=== PATIENT | male | born 1960 | race Caucasian/White ===

== ENCOUNTER 2016-08-19 18:18 | Emergency (ER) | payer BC ==
[~2016-08-19] VITALS: Ht 190.5 cm; Wt 115.3 kg
[~2016-08-19 18:18] MED LIST: ALBUAER19; ANDROGEL TOP; EPLE50TA PO; FLUT50SP14 NAE; INS/25 PO; METO25TA3 PO; MONT1TAB3 PO; OMEPRAZOLE PO; SYNTHROID PO; WELLBUTRIN PO
[2016-08-19 18:26] VITALS: TEMP 36.8; Ht 190.5 cm; Wt 115.3 kg
--- NOTE | 2016-08-19 18:45 | EMERGENCY ROOM VISIT NOTE ---
History Report prepared by Kayla: [facility] Under the Supervision of: Dr. Fernando Jarvis D.O. First contact with patient: 18:29 Chief Complaint: RESPIRATORY PROBLEMS Stated Complaint: FOOD STUCK IN LUNG, A LOT OF WHEEZING Nursing Triage Summary: Triage note: pt reports "on tuesday i was eating a fruit cup and inhaled a piece of the fruit and i think it is stuck in my left lung, i can feel it there." History of Present Illness The patient is a 56 year old male who presents to the Emergency Room with complaints of persistent chest discomfort that started two days ago. The patient notes he was eating a piece of fruit and he thinks he inhaled it into his lung. He notes that he tried to get the fruit out that day, but was not successful. The next day he tried deep coughing exercises since he still felt the piece of fruit in his left lung when he woke up. The patient notes that he started wheezing yesterday. He called his PCP today and they told him to present to the ED for further evaluation. He denies fevers, chills, problems with swallowing, drinking or eating, abdominal pain, nausea or vomiting. Source of History: patient Onset: two days ago Position: chest Timing: other (persistent) Associated Symptoms: + cough, No abdominal pain, No chills, No fevers, No nausea, No vomiting Note: Other associated symptoms: wheezing denies: problems with swallowing, drinking or eating Review of Systems See HPI for pertinent positives & negatives. A total of 10 systems reviewed and were otherwise negative. Past Medical & Surgical Medical Problems: (1) Anxiety (2) Asthma (3) Bicuspid aortic valve (4) Bronchitis (5) Depression (6) Enlarged aorta (7) Tenzin's disease (8) Heart disease (9) Hernia (10) Hypertension (11) Hypogonadism (12) Kidney disease (13) Pneumonia (14) Skin problem (15) Stomach problems Surgical Problems: (1) H/O nasal septoplasty (2) S/P tonsillectomy Family History FH: cancer FH: diabetes mellitus FH: gallbladder disease FH: heart disease FH: hypertension FH: lung disease FH: seizures Kidney stone Social History Smoking Status: Never Smoker Marital Status: Housing Status: lives with family Occupation Status: employed Current/Historical Medications Scheduled Bupropion HCl (Bupropion HCl Sr), 150 MG PO BID Duloxetine Hcl (Cymbalta), 30 MG PO DAILY Eplerenone (Eplerenone), 50 MG PO DAILY Esomeprazole Magnesium (Nexium), 20 MG PO DAILY Fluticasone Propionate (Nasal) (Flonase Allergy Relief), 2 SPRAYS PERRI DAILY Hydrochlorothiazide (Hctz), 25 MG PO DAILY Levocetirizine Dihydrochloride (Levocetirizine Dihydrochl), 5 MG PO DAILY Levothyroxine Sodium (Synthroid), 300 MCG PO 2XWK Levothyroxine Sodium (Synthroid), 200 MCG PO 5XWK Metoprolol Succinate (Metoprolol Succinate ER), 37.5 MG PO QAM Metoprolol Succinate (Metoprolol Succinate ER), 25 MG PO QPM Montelukast Sodium (Montelukast Sodium), 10 MG PO DAILY Testosterone (Androgel Pump), 1 APPLN TOP UD Trazodone Hcl (Trazodone), 50 MG PO HS Scheduled PRN Albuterol Sulfate (Proair Respiclick), 2 PUFFS INH UD PRN for Shortness of Breath Allergies Coded Allergies: Chocolate (Verified Allergy, Mild, HIVES, 04/12/13) Erythromycin (Verified Allergy, Mild, GI SYMPTOMS, 04/12/13) Gluten (Verified Allergy, Mild, GI SYMPTOMS, 04/12/13) Latex (Verified Allergy, Mild, RASH, 04/12/13) HIVES Uncoded Allergies: CEPHALSPORINS (Allergy, Mild, RASH, 04/12/13) ITCHY TREES (Allergy, Mild, SHORTNESS OF BREATH, 04/12/13) TREES,GRAAS,FLOWER,PLANTS EMYCIN, ? SULFA (Allergy, Unknown, 01/26/04) Physical Exam Vital Signs Date Time Temp Pulse Resp B/P Pulse Ox O2 Delivery O2 Flow Rate FiO2 08/19/16 20:51 71 18 124/81 96 08/19/16 19:46 67 08/19/16 19:44 95 Room Air 08/19/16 19:44 68 18 125/75 95 Room Air 08/19/16 19:44 95 Room Air 08/19/16 18:26 36.8 69 18 129/68 96 Room Air Physical Exam GENERAL: Patient is awake alert in no acute distress patient is resting comfortably and showing no signs of anxiety EYES: The conjunctivae are clear. The pupils are round and reactive. EARS, NOSE, MOUTH AND THROAT: The nose is without any evidence of any deformity. Mucous membranes are moist tongue is midline NECK: The neck is nontender and supple. RESPIRATORY: Scattered rhonchi noted throughout. No tachypnea, wheezing or conversational dyspnea noted. CARDIOVASCULAR: Regular rate and rhythm noted there no murmurs rubs or gallops normal S1 normal S2 GASTROINTESTINAL: The abdomen is soft. Bowel sounds are present in all quadrants. Abdomen is nontender MUSCULOSKELETAL/EXTREMITIES: There is no evidence of gross deformity full range of motion is noted in the hips and shoulders SKIN: There is no obvious evidence of any rash. There are no petechiae, pallor or cyanosis noted. NEUROLOGIC: Patient is awake alert and oriented x3 Medical Decision & Procedures ER Provider Diagnostic Interpretation: X-ray results as stated below per interpretation by me and the radiologist. CHEST 2 VIEWS ROUTINE CLINICAL HISTORY: Respiratory distress. Dyspnea. COMPARISON STUDY: No previous studies for comparison. FINDINGS: Lung volumes are normal. There is no consolidation. No pneumothorax or pleural effusions present. Cardiac size is normal. Mediastinal contours are normal. There is no evidence of pulmonary edema. IMPRESSION: No acute cardiopulmonary findings. Electronically signed by: Papito Butt M.D. 08/19/2016 7:25 PM Dictated Date/Time: 08/19/2016 7:24 PM Laboratory Results 08/19/16 18:52 Red Blood Count 5.80, Mean Corpuscular Volume 76.9, Mean Corpuscular Hemoglobin 26.0, Mean Corpuscular Hemoglobin Concent 33.9, Mean Platelet Volume 9.3, Neutrophils (%) (Auto) 55.5, Lymphocytes (%) (Auto) 29.7, Monocytes (%) (Auto) 10.6, Eosinophils (%) (Auto) 3.2, Basophils (%) (Auto) 0.6, Neutrophils # (Auto ) 2.61, Lymphocytes # (Auto) 1.40, Monocytes # (Auto) 0.50, Eosinophils # (Auto ) 0.15, Basophils # (Auto) 0.03 08/19/16 18:52 Test 08/19/16 18:52 08/19/16 19:30 White Blood Count 4.71 K/uL (4.8-10.8) Red Blood Count 5.80 M/uL (4.7-6.1) Hemoglobin 15.1 g/dL (14.0-18.0) Hematocrit 44.6 % (42-52) Mean Corpuscular Volume 76.9 fL (80-100) Mean Corpuscular Hemoglobin 26.0 pg (25-34) Mean Corpuscular Hemoglobin Concent 33.9 g/dl (32-36) Platelet Count 157 K/uL (130-400) Mean Platelet Volume 9.3 fL (7.4-10.4) Neutrophils (%) (Auto) 55.5 % Lymphocytes (%) (Auto) 29.7 % Monocytes (%) (Auto) 10.6 % Eosinophils (%) (Auto) 3.2 % Basophils (%) (Auto) 0.6 % Neutrophils # (Auto) 2.61 K/uL (1.4-6.5) Lymphocytes # (Auto) 1.40 K/uL (1.2-3.4) Monocytes # (Auto) 0.50 K/uL (0.11-0.59) Eosinophils # (Auto) 0.15 K/uL (0-0.5) Basophils # (Auto) 0.03 K/uL (0-0.2) RDW Standard Deviation 38.9 fL (36.4-46.3) RDW Coefficient of Variation 13.9 % (11.5-14.5) Immature Granulocyte % (Auto) 0.4 % Immature Granulocyte # (Auto) 0.02 K/uL (0.00-0.02) Prothrombin Time 10.7 SECONDS (9.0-12.0) Prothromb Time International Ratio 1.0 (0.9-1.1) Activated Partial Thromboplast Time 28.0 SECONDS (21.0-31.0) Partial Thromboplastin Ratio 1.1 Anion Gap 7.0 mmol/L (3-11) Est Creatinine Clear Calc Drug Dose 77.1 ml/min Estimated GFR () 60.3 Estimated GFR (Non- 52.0 BUN/Creatinine Ratio 12.5 (10-20) Calcium Level 9.0 mg/dl (8.5-10.1) Total Bilirubin 0.5 mg/dl (0.2-1) Aspartate Amino Transf (AST/SGOT) 12 U/L (15-37) Alanine Aminotransferase (ALT/SGPT) 28 U/L (12-78) Alkaline Phosphatase 59 U/L (45-117) Troponin I < 0.015 ng/ml (0-0.045) Total Protein 7.0 gm/dl (6.4-8.2) Albumin 4.1 gm/dl (3.4-5.0) Globulin 2.9 gm/dl (2.5-4.0) Albumin/Globulin Ratio 1.4 (0.9-2) Urine Color YELLOW Urine Appearance CLEAR (CLEAR) Urine pH 6.5 (4.5-7.5) Urine Specific [place] 1.007 (1.000-1.030) Urine Protein NEG (NEG) Urine Glucose (UA) NEG (NEG) Urine Ketones NEG (NEG) Urine Occult Blood NEG (NEG) Urine Nitrite NEG (NEG) Urine Bilirubin NEG (NEG) Urine Urobilinogen NEG (NEG) Urine Leukocyte Esterase NEG (NEG) Laboratory results per my review. ECG Indication: other Rate (beats per minute): 69 Rhythm: normal sinus Findings: no ectopy, other (lateral t-wave inversion, LVH by voltage criteria) Comparison ECG Date: no prior available ED Course 9: The patient was evaluated in room 8. A complete history and physical examination were performed. 1941: At this time, I reevaluated the patient and he was resting comfortably. 2019: At this time, I discussed the patient's case with Dr. Quintana - Pulmonary Medicine [facility] and agreed to see the patient in his outpatient office for a bronchoscopy. He said to advise the patient if his symptoms worsened. : Upon reevaluation, the patient is resting comfortably. I discussed the results and treatment plan with him. He verbalized agreement of the treatment plan. The patient was discharged home. Medical Decision Differential diagnosis: Etiologies such as infections, reactive airway disease, pneumonia, pneumothorax , COPD, CHF, cardiac ischemia, pulmonary embolism, musculoskeletal, gastrointestinal, as well as others were entertained. Nursing notes reviewed. The patient is a 56-year-old male who presented to the emergency department for evaluation of possible aspiration into his lungs. The patient states that 2 days ago he was eating a fruit cup when he feels that he aspirated a piece of fruit. The patient was not hypoxic or tachycardic. The patient was comfortable and resting well. I discussed the patient's laboratory and radiographic studies with him. I also discussed his case with the on-call air shovel operator. At this time I feel the patient can follow-up for outpatient pulmonary evaluation and possible bronchoscopy. The patient was evaluated by the emergency Department oil field caser and arrangements were made for him to see the air shovel operator in the morning. He was encouraged to rest and avoid any strenuous activity. He was encouraged to be nothing by mouth after midnight. He was also encouraged to return the emergency Department immediately if symptoms change worsen or the need arises. Consults Time Called: 2013 Consulting Physician: Dr. Quintana - Pulmonary Medicine [facility] Returned Call: 2018 At this time, I discussed the patient's case with Dr. Quintana and agreed to see the patient in his outpatient office for a bronchoscopy. He said to advise the patient if his symptoms worsened. Impression Primary Impression: Shortness of breath Additional Impression: Aspiration of foreign body in respiratory tract Scribe Attestation The scribe's documentation has been prepared under my direction and personally reviewed by me in its entirety. I confirm that the note above accurately reflects all work, treatment, procedures, and medical decision making performed by me. Departure Information Dispostion Home / Self-Care Referrals Brenda Nunez M.D. (PCP) Forms HOME CARE DOCUMENTATION FORM, IMPORTANT VISIT INFORMATION, WORK / SCHOOL INSTRUCTIONS Patient Instructions ED Dyspnea Shortness of Breath, [facility] Additional Instructions Follow-up with the air shovel operator tomorrow morning. Have nothing to eat or drink after midnight tonight. Continue all medications as prescribed. Return to the emergency department immediately if symptoms change worsen or the need arises. Problem Qualifiers
[2016-08-19 19:06] LABS: BASO % 0.6 %; BASO ABS # 0.03 K/uL (0-0.2); COMPLETE YES; EOS % 3.2 %; HEMATOCRIT 44.6 % (42-52); IG% 0.4 %; LYMPH % 29.7 %; MEAN CELL VOLUME 76.9 fL (80-100); MEAN CORPUSCULAR HGB CONC 33.9 g/dl (32-36); MEAN PLATELET VOLUME 9.3 fL (7.4-10.4); MONO % 10.6 %; NEUT % 55.5 %; PLATELET COUNT 157 K/uL (130-400); WHITE BLOOD COUNT 4.71 K/uL (4.8-10.8)
[2016-08-19] MEDS ORDERED: LEVO-14 PO (19:16)
[2016-08-19] MEDS ORDERED: TEST5GEL TOP (19:16)
[2016-08-19] MEDS ORDERED: WLLSR150 PO (19:16)
[2016-08-19] MEDS ORDERED: HYDR25TA4 PO (19:16)
[2016-08-19] MEDS ORDERED: MONT1TAB5 PO (19:16)
[2016-08-19] MEDS ORDERED: ALBU18002 INH (19:16)
[2016-08-19] MEDS ORDERED: TRAZ50TA35 PO (19:16)
[2016-08-19] MEDS ORDERED: ESOM20CA PO (19:16)
[2016-08-19] MEDS ORDERED: TPRSR25 PO (19:16)
[2016-08-19] MEDS ORDERED: LEVO200T PO ×2 (19:16)
[2016-08-19] MEDS ORDERED: EPLE50TA3 PO (19:16)
[2016-08-19] MEDS ORDERED: TPRSR/25 PO (19:16)
[2016-08-19] MEDS ORDERED: CYM/30 PO (19:16)
[2016-08-19] MEDS ORDERED: FLUT0.15 NAE (19:16)
[2016-08-19 19:25] LABS: ALT/SGPT 28 U/L (12-78); AST/SGOT 12 U/L (15-37); BLOOD UREA NITROGEN 19 mg/dl (7-18); BUN/CREATININE RATIO 12.5 (10-20); CARBON DIOXIDE 29 mmol/L (21-32); CHLORIDE 103 mmol/L (98-107); GLUCOSE 91 mg/dl (70-99); POTASSIUM 3.6 mmol/L (3.5-5.1); SODIUM 139 mmol/L (136-145)
--- NOTE | 2016-08-19 19:27 | DIAGNOSTIC IMAGING REPORT ---
CHEST 2 VIEWS ROUTINE CLINICAL HISTORY: Respiratory distress. Dyspnea. COMPARISON STUDY: No previous studies for comparison. FINDINGS: Lung volumes are normal. There is no consolidation. No pneumothorax or pleural effusions present. Cardiac size is normal. Mediastinal contours are normal. There is no evidence of pulmonary edema. IMPRESSION: No acute cardiopulmonary findings. Electronically signed by: Papito Butt M.D. 08/19/2016 7:25 PM Dictated Date/Time: 08/19/2016 7:24 PM
[2016-08-19 19:29] LABS: ALB/GLOB RATIO 1.4 (0.9-2); ALKALINE PHOSPHATASE 59 U/L (45-117)
[2016-08-19 19:31] LABS: PARTIAL THROMBOPLASTIN RATIO 1.1; PROTHROMBIN TIME (PATIENT) 10.7 SECONDS (9.0-12.0)
[2016-08-19 19:44] VITALS: O2SAT 95
[2016-08-19 20:02] LABS: URINE APPEARANCE CLEAR (CLEAR); URINE BILIRUBIN NEG (NEG); URINE COLOR YELLOW; URINE NITRITE NEG (NEG); URINE PH 6.5 (4.5-7.5); URINE SPECIFIC GRAVITY 1.007 (1.000-1.030); UROBILINOGEN NEG (NEG)
[2016-08-19 20:10] LABS: MANUAL MICROSCOPIC REQUIRED? NO; REVIEW REQ? NO
[2016-08-19 20:51] VITALS: BP 124/81; PULSE 71; O2SAT 96
[2016-09-23] MEDS ORDERED: ASPCH81X PO (09:03)
[2016-09-23] MEDS ORDERED: DULO-24 PO (09:03)
[2016-09-23] MEDS ORDERED: HYDR200T5 PO (09:03)
[2016-09-23] MEDS ORDERED: ATRINS NEB (09:03)
[2016-09-23] MEDS ORDERED: PHEN10TA73 PO (09:03)
== END 2016-08-19 20:52 | disposition home or self-care (01) ==
LOC: C.EDB 18:19 → C.EDC 20:52
DX: R06.02 Shortness of breath (principal); T17.908A Unspecified foreign body in respiratory tract, part unspecified causing other injury, initial encounter; X58.XXXA Exposure to other specified factors, initial encounter; F41.9 Anxiety disorder, unspecified; J45.909 Unspecified asthma, uncomplicated; Q23.1 Congenital insufficiency of aortic valve; F32.9 Major depressive disorder, single episode, unspecified; E06.3 Autoimmune thyroiditis; I10 Essential (primary) hypertension; E29.1 Testicular hypofunction; N28.9 Disorder of kidney and ureter, unspecified; Z83.3 Family history of diabetes mellitus; Z82.49 Family history of ischemic heart disease and other diseases of the circulatory system; Z84.1 Family history of disorders of kidney and ureter; Z82.0 Family history of epilepsy and other diseases of the nervous system

== ENCOUNTER → 2016-08-27 | Outpatient (CLI) | payer BC ==
[~2016-08-27] MED LIST changes: +ALBU18002 INH; -ALBUAER19; -ANDROGEL TOP; +ASPCH81X PO; +ATRINS NEB; +CYM/30 PO; +DULO-24 PO; -EPLE50TA PO; +EPLE50TA3 PO; +ESOM20CA PO; +FLUT0.15 NAE; -FLUT50SP14 NAE; +HYDR200T5 PO; +HYDR25TA4 PO; -INS/25 PO; +LEVO-14 PO; +LEVO200T PO; -METO25TA3 PO; -MONT1TAB3 PO; +MONT1TAB5 PO; -OMEPRAZOLE PO; +PHEN10TA73 PO; -SYNTHROID PO; +TEST5GEL TOP; +TPRSR/25 PO; +TPRSR25 PO; +TRAZ50TA35 PO; -WELLBUTRIN PO; +WLLSR150 PO
--- NOTE | 2016-08-27 09:50 | DIAGNOSTIC IMAGING REPORT ---
CHEST 2 VIEWS ROUTINE CLINICAL HISTORY: Aspiration. History of asthma. COMPARISON STUDY: 08/19/2016 FINDINGS: The cardiac and mediastinal contours are normal. There is no evidence of focal pulmonary consolidation. There is no evidence of failure. No pleural effusions are visualized.[ IMPRESSION: No active disease in the chest. Electronically signed by: Alfie Valdez M.D. 08/27/2016 9:48 AM Dictated Date/Time: 08/27/2016 9:48 AM
== END | disposition home or self-care (01) ==
LOC: C.RADBBURG 09:37
PROVIDERS: ATTEND Internal Medicine Critical Care Medicine
DX: T17.890A Other foreign object in other parts of respiratory tract causing asphyxiation, initial encounter (principal); X58.XXXA Exposure to other specified factors, initial encounter

== ENCOUNTER → 2016-09-23 | Day surgery (SDC) | payer BC ==
[~2016-09-23] VITALS: Ht 190.5 cm; Wt 113.5 kg
[~2016-09-23] MED LIST changes: +ACETAMINOPHEN 325 MG TAB PO PRN; +ATROPINE SULFATE 0.1 MG/ML 5ML SYR IV PRN; +DIAZEPAM 5MG TAB ONE; +SODIUM CHLORIDE 0.9% 1000ML 1,000 ML IV SCH; +SODIUM CHLORIDE 0.9% 1000ML 250 ML IV PRN
[2016-09-23 08:28] VITALS: BP 127/74; PULSE 62; TEMP 36.5; O2SAT 99; Ht 190.5 cm; Wt 113.5 kg
[2016-09-23 09:05] LABS: BASO % 0.8 %; BASO ABS # 0.03 K/uL (0-0.2); COMPLETE YES; EOS % 4.5 %; HEMATOCRIT 45.2 % (42-52); IG% 0.3 %; LYMPH ABS # 1.24 K/uL (1.2-3.4); MEAN CELL VOLUME 78.5 fL (80-100); MEAN CORPUSCULAR HEMOGLOBIN 25.9 pg (25-34); MEAN PLATELET VOLUME 9.3 fL (7.4-10.4); MONO % 6.3 %; NEUT % 57.1 %; PLATELET COUNT 157 K/uL (130-400); RED BLOOD COUNT 5.76 M/uL (4.7-6.1)
[2016-09-23 09:15] LABS: BUN/CREATININE RATIO 14.6 (10-20); CREATININE 1.4 mg/dl (0.60-1.40); POTASSIUM 4.1 mmol/L (3.5-5.1)
--- NOTE | 2016-09-23 10:05 | History & Physical Bridge Note ---
H&P Re-Evaluation Bridge Note: I have examined the patient, reviewed the History & Physical and in the interval since the performance of the History & Physical I have noted the following changes of clinical significance: No changes noted
--- NOTE | 2016-09-23 10:08 | [facility] Post Operative Brief Note ---
Preliminary Procedure Note Procedure Date September 23, 2016. Pre-Procedure Diagnosis Valvular Disease AUC Score 7 Post-Procedure Diagnosis Normal Coronary Arteries Procedure(s) Performed Coronary Angiography, Aortography Director Of Digital Marketing Dr. Chino Sutton Compliance Vice President(s) Buddy Del Rio Estimated Blood Loss <15 cc Medication(s) Lidocaine 1% (local infiltration), Diphenhydramine (25mg po), Diazepam (Valium 5mg po) Preliminary Findings Codominant coronary anatomy Short Left Main Modest caliber coronaries with minimal irregularities only Moderate aortic root enlargement Moderate aortic insufficiency Recommendations valve replacement Specimens None Anesthesia Anxiolytics only Procedural Complication(s) None Disposition Body Repairer Holding/Recovery
--- NOTE | 2016-09-23 12:26 | Discharge Instructions ---
Discharge Instructions Procedure Procedure Date: September 23, 2016. Reason for Visit: Aortic Stenosis *. Discharge Discharge Date: September 23, 2016. Discharge Diagnosis: Aortic stenosis/insufficiency Last Recorded Wt (Kilograms): 113.500 Anesthesia Post Anesthesia Instructions: If you have had General Anesthesia or IV Sedation: * Do not drive today. * Resume driving when surgeon permits. * Do not make important decisions or sign legal documents today. * Call surgeon for: 1. Temperature elevations greater than 101 degrees F. 2. Uncontrollable pain. 3. Excessive bleeding. 4. Persistent nausea and vomiting. 5. Medication intolerance (nausea, vomiting or rash). * For nausea and vomiting use only clear liquids such as: tea, soda, bouillon until nausea subsides, then gradually increase diet as tolerated. * If you have any concerns or questions, call your surgeon's office. If physician is unavailable and it is an emergency, call 911 or go to the nearest emergency room. Instructions Activity Recommendations: limitations as noted below Recommended Home Diet: resume previous diet Allergies: Coded Allergies: Chocolate (Verified Allergy, Mild, HIVES, 04/12/13) Latex (Verified Allergy, Mild, RASH, 04/12/13) HIVES Erythromycin (Verified Adverse Reaction, Mild, GI SYMPTOMS, 09/23/16) Gluten (Verified Adverse Reaction, Mild, GI SYMPTOMS, 09/23/16) Uncoded Allergies: CEPHALSPORINS (Allergy, Mild, RASH, 04/12/13) ITCHY TREES (Allergy, Mild, SHORTNESS OF BREATH, 04/12/13) TREES,GRAAS,FLOWER,PLANTS EMYCIN, ? SULFA (Allergy, Unknown, 01/26/04) NARCOTICS (Adverse Reaction, Severe, Nausea/vomiting, 09/23/16) Provider Instructions ACTIVITY RECOMMENDATIONS: It is common to feel weak and fatigue for a few days. * Do not drive or operate any motorized equipment for the next three days. * Limit stair usage (2 or 3 trips a day only) for the next three days. * Do not lift anything heavier than 10 pounds for the next three days. * Do not engage in vigorous exercise or any sports for the next five days. * You may shower the day after your procedure, but do not immerse the area for three days. Cleanse the site gently with soap and water. SPECIAL CARE INSTRUCTIONS: * You may replace the pressure dressing or band-aid the morning after the procedure. * After your procedure, it is normal to have a small bruise or small lump at the site. Examine your site daily for any change in the bruise or lump, redness, swelling, drainage or numbness. Notify your doctor if any change. BLEEDING: * If there is a small amount of bleeding at the site, lie down and apply firm pressure with a clean cloth for ten minutes. When the bleeding stops, lie quietly keeping the procedure limb straight for six hours. Notify your doctor as soon as possible. * If the bleeding does not stop after ten minutes or if there is a large amount of bleeding or spurting, call 911 immediately. Continue to lie down and hold firm pressure until help arrives. SKIN IRRITATION: * You may experience some redness and/or swelling in the area where radiation was administered. If any skin irritation occurs, please contact your family physician. FOLLOW UP VISIT: Keep any scheduled doctor appointments. Follow Up Follow-up with: Dr Kent as scheduled Tomas Arciniega Recommendations: Call your doctor if: * Temperature above 101 degrees * Pain not relieved by pain medicine ordered * There is increased drainage or redness from any incision * You have any unanswered questions or concerns. Your Doctors Instructions noted above were prepared by provider Chino Sutton. Patient Signature Section: Patient Instructions Signature Page Tyrone Holliday Patient (or Guardian) Signature/Date: I have read and understand the instructions given to me by my caregivers. Caregiver/RN/Doctor Signature/Date: The above-named patient and/or guardian has received patient instructions on this date. + Original Patient Signature Page (only) stays with chart. Please make copy for patient.
[2016-09-23 13:15] VITALS: BP 138/69; PULSE 54; O2SAT 96
--- NOTE | 2016-09-23 15:17 | CARDIAC CATH REPORT ---
DATE OF PROCEDURE: 09/23/2016. INDICATIONS: Aortic stenosis, aortic valve disease, preoperative assessment. PROCEDURE: Coronary angiography, aortic root angiography. BRIEF CARDIAC HISTORY: The patient is a 56-year-old male with a history of congenitally bicuspid aortic valve with associated aortic stenosis, aortic insufficiency, symptomatic. Is referred now in the setting of planned preoperative valve replacement assessment. He has manifested a class 2-3 exertional dyspnea and shortness of breath, no heart failure or angina. LV systolic function has been preserved. ACCESS: Right femoral artery. CATHETERS: A 5-Gibraltarian arterial sheath, 5-Gibraltarian JL5 5-Gibraltarian 3DRC, 5-Gibraltarian straight pigtail. CONTRAST: Nonionic x100 mL of Visipaque. ANESTHESIA: None. The patient received anxiolytics therapy with Valium 5 mg p.o. and Benadryl 25 mg p.o. MEDICATIONS: The patient received local anesthetic infiltration with 1% lidocaine. RADIATION EXPOSURE: Fluoroscopy time 2.9 minutes, 1333 milligrays, [place] [id number]. COMPLICATIONS: None. RESULTS: CORONARY ANGIOGRAPHY: Coronary anatomy is codominant. LEFT MAIN: Very short and bifurcates to give rise to left anterior descending and left circumflex. There is no disease in the left main. LEFT ANTERIOR DESCENDING: Left anterior descending is type 3 in distribution and gives rise to a high diagonal branch of modest caliber shortly after its origin, a large second diagonal branch at the end of its proximal third, which parallels the left anterior descending to the apex. Left anterior descending reaches well beyond the apex as a type 3 vessel. Within the left anterior descending, there are very minimal luminal irregularities. Overall caliber of left anterior descending and all coronaries is modest. LEFT CIRCUMFLEX: Left circumflex is large in distribution, modest in caliber. Gives rise to a small first marginal, a large second marginal branch and along the AV groove a large bifurcating posterolateral branch. There is no disease in the left circumflex. RIGHT CORONARY ARTERY: The right coronary artery is codominant in distribution. It gives rise to 2 right ventricular branches in its proximal mid portion. It continues to the AV groove continuing along as a long posterior descending artery reaching the apex. There is only trivial vessel along the AV groove. Within the right coronary artery as previously described coronary anatomy is relatively small. There are minimal luminal irregularities. There is no obstructive disease. AORTIC ROOT ANGIOGRAPHY: The aortic root is moderately dilated. There is mild aortic insufficiency. FINAL IMPRESSIONS: 1. Congenitally bicuspid aortic valve by history. 2. Codominant coronary anatomy. 3. Modest caliber coronary vessels with only minimal luminal irregularities and no obstruction. 4. Moderate aortic root enlargement. 5. Moderate aortic root insufficiency grade 2+. RECOMMENDATIONS: The patient should be referred for surgical aortic valve replacement.
== END | disposition home or self-care (01) ==
LOC: C.CATH 08:19
PROVIDERS: ATTEND Internal Medicine Cardiovascular Disease
DX: Q23.1 Congenital insufficiency of aortic valve (principal)

== ENCOUNTER 2018-06-05 06:43 | Observation (INO) ==
--- NOTE | 2018-06-05 07:23 | Emergency Department Note ---
History of Present Illness General Chief complaint: Rib Injury/Pain Time Seen by Provider: 06/05/18 06:57 History of Present Illness Maximum Pain Intensity: 10 This is a 58-year-old male that presents to the emergency department via private vehicle with complaints of "flank pain". The patient states that day, 2 days ago he was exiting his garage, stepped on ice and fell onto his right side. He notes extreme pain at that time and was seen here and had CT scans performed. He notes 7 consecutive rib fractures on the right side. He notes that he has been taking the oxycodone he was prescribed with minimal relief. He notes he was seen here yesterday for repeat chest x-ray as recommended by the thoracic surgeon and last evening try to sleep and then was vomiting with the pain medication. He notes that his pain is increased since then therefore prompting his arrival. No further trauma or falls to the area. He numerically rates the overall pain currently as a 10/10. No new abdominal pain or hemoptysis. Home Medications Home Medications Medication Instructions Recorded Confirmed Type albuterol sulfate [ProAir 2 puff INHALATION Q6H PRN 06/03/18 06/05/18 History RespiClick] aspirin 162 mg PO QPM 06/03/18 06/05/18 History bupropion HCl 150 mg PO BID 06/03/18 06/05/18 History duloxetine 20 mg PO DAILY 06/03/18 06/05/18 History eplerenone 50 mg PO DAILY 06/03/18 06/05/18 History esomeprazole magnesium 20 mg PO DAILY 06/03/18 06/05/18 History fluticasone [Flonase Allergy 2 spray INTRANASAL DAILY 06/03/18 06/05/18 History Relief] hydrochlorothiazide 37.5 mg PO DAILY 06/03/18 06/05/18 History hydroxychloroquine 400 mg PO HS 06/03/18 06/05/18 History levocetirizine 5 mg PO HS 06/03/18 06/05/18 History levothyroxine 200 mcg PO DAILY 06/03/18 06/05/18 History lidocaine [Lidoderm] 1 patch TOP DAILY #30 ea 06/03/18 06/05/18 Rx metoprolol succinate 25 mg PO QPM 06/03/18 06/05/18 History metoprolol succinate 50 mg PO QAM 06/03/18 06/05/18 History montelukast 10 mg PO PM 06/03/18 06/05/18 History ondansetron 4 mg PO Q4H PRN #30 tab 06/03/18 06/05/18 Rx oxycodone 5 mg PO Q4H PRN #18 tab 06/03/18 06/05/18 Rx testosterone 2 dose TOPICAL 4XWK 06/03/18 06/05/18 History testosterone 3 dose TOPICAL 3XWK 06/03/18 06/05/18 History trazodone 50 mg PO HS 06/03/18 06/05/18 History Allergies Allergy/AdvReac Type Severity Reaction Status Date / Time chocolate flavor Allergy Mild HIVES Verified 06/05/18 07:02 latex Allergy Mild RASH Verified 06/05/18 07:02 Sulfa (Sulfonamide Allergy Rash Unverified 06/05/18 07:02 Antibiotics) erythromycin base AdvReac Mild GI SYMPTOMS Verified 06/05/18 07:02 gluten AdvReac Mild GI SYMPTOMS Verified 06/05/18 07:02 furosemide [From Lasix] AdvReac Diarrhea Unverified 06/05/18 07:02 CEPHALSPORINS Allergy Mild RASH Uncoded 06/05/18 07:02 TREES Allergy Mild SHORTNESS Uncoded 06/05/18 07:02 OF BREATH NARCOTICS AdvReac Severe Nausea/vomi Uncoded 06/05/18 07:02 ting Past Med/Surg History Medical History Heart disease (Chronic) Hypertension (Chronic) Kidney disease (Chronic) Asthma (Chronic) Stomach problems (Chronic) Bicuspid aortic valve (Chronic) Tenzin's disease (Chronic) Enlarged aorta (Chronic) Depression (Chronic) Anxiety (Chronic) Surgical History Heart valve replaced Social History Current Living Situation: Spouse Other Information That Helps Us Care for You: No Feels Safe at Home: Yes Safety Concerns: Feels Safe At This Time Smoking Status: Never smoker Hx Alcohol Use: No Hx Substance Use: No Beliefs That Will Affect Care: None Preferred Language: Turkish Communication Ability: Effective Review of Systems A total of 10 systems reviewed and were otherwise negative Physical Exam Vital Signs Vital Signs - 24 hr 06/05/18 06:47 06/05/18 06:55 06/05/18 09:11 Temperature 36.8 C Temperature Source Oral Sepsis Recent Fever Within 48 Hours No Sepsis New/Unexplained Change in Mental Status No Sepsis Action Taken by Nursing No Action Required Pulse Rate 66 67 Pulse Rate [Apical] Pulse Rhythm Regular Regular Pulse Rhythm [Apical] Pulse Strength Normal Pulse Strength [Apical] Respiratory Rate 18 18 Respiratory Effort / Characteristics Non-Labored Spontaneous Non-Labored Spontaneous Respiratory Depth Normal Normal Respiratory Pattern Regular Regular Blood Pressure 145/89 H Blood Pressure [Right Arm] Blood Pressure Mean 107 Blood Pressure Mean [Right Arm] Blood Pressure Position [Right Arm] Pulse Oximetry 96 96 Oxygen Delivery Method Nasal Cannula Nasal Cannula Nasal Cannula Oxygen Flow Rate 1 1 1 06/05/18 09:30 06/05/18 10:14 06/05/18 10:45 Temperature Temperature Source Sepsis Recent Fever Within 48 Hours Sepsis New/Unexplained Change in Mental Status Sepsis Action Taken by Nursing Pulse Rate 80 Pulse Rate [Apical] 76 Pulse Rhythm Pulse Rhythm [Apical] Regular Pulse Strength Pulse Strength [Apical] Normal Respiratory Rate 18 18 Respiratory Effort / Characteristics Non-Labored Spontaneous Splinting (from pain) Respiratory Depth Normal Respiratory Pattern Regular Blood Pressure 167/99 H Blood Pressure [Right Arm] 163/99 H Blood Pressure Mean Blood Pressure Mean [Right Arm] 120 Blood Pressure Position [Right Arm] Pulse Oximetry 94 93 Oxygen Delivery Method Room Air Nasal Cannula Nasal Cannula Oxygen Flow Rate 2 1 06/05/18 10:57 Temperature 36.5 C Temperature Source Oral Sepsis Recent Fever Within 48 Hours Sepsis New/Unexplained Change in Mental Status Sepsis Action Taken by Nursing Pulse Rate Pulse Rate [Apical] Pulse Rhythm Pulse Rhythm [Apical] Pulse Strength Pulse Strength [Apical] Respiratory Rate 16 Respiratory Effort / Characteristics Respiratory Depth Normal Respiratory Pattern Blood Pressure Blood Pressure [Right Arm] 158/94 H Blood Pressure Mean Blood Pressure Mean [Right Arm] 115 Blood Pressure Position [Right Arm] Lying Pulse Oximetry 92 Oxygen Delivery Method Oxygen Flow Rate 1 VITAL SIGNS - Vital signs and nursing notes were reviewed. Stable. GENERAL - 58-year-old male appearing his stated age who is in no acute distress. Communicates well with provider and answers questions appropriately. SKIN - Without rashes. HEAD - NC/AT. EYES - PERRL with EOMI bilaterally. Sclera anicteric. EARS - No deformities of external structures noted on gross examination bilaterally. NOSE - Midline and without cyanosis. No epistaxis or purulent drainage noted. MOUTH/OROPHARYNX - Without perioral cyanosis. Buccal mucosa pink and moist and without leukoplakia. Tongue midline with equal elevation of palate bilaterally. No tonsillar hypertrophy, erythema, or exudates noted. Fair dentition noted. NECK - Neck with FROM. Supple to palpation. No lymphadenopathy noted. No nuchal rigidity. LUNGS - Chest wall symmetric without accessory muscle use, intercostals retractions, or central cyanosis. Normal vesicular breath sounds CTA B/L. No wheezes, rales, or rhonchi appreciated. CARDIAC - RRR with S1/S2. Small systolic murmur compatible with valve.No rubs, or gallops appreciated. MUSCULOSKELETAL: Patient is exquisitely tender overlying the right anterior lateral ribs. No flail chest. ABDOMEN - Abdominal contour normal without pulsations or visible masses. BS normoactive all four quadrants. No tenderness, palpable masses, hepatosplenomegaly, or ascites noted. EXTREMITIES - No clubbing or peripheral cyanosis. No pretibial edema present. +5 /5 strength noted in UE/LE bilaterally. NEUROLOGIC - Cranial nerves II through XII grossly intact. Sensory intact to light touch throughout. PSYCH - A&Ox3 and cooperates fully with examiner. Pt is very pleasant and interacts well with examiner. Course Administered Medications Hydromorphone HCl (Dilaudid) 0.5 mg IV Q4 PRN PRN Reason: Pain Stop: 06/19/18 09:30 Last Admin: 06/05/18 10:59 Dose: 0.5 mg Discontinued Medications Ceftriaxone Sodium (Rocephin) Confirm Administered Dose 1,000 mg .ROUTE .STK- MED ONE Stop: 06/05/18 09:40 Last Admin: 06/05/18 09:41 Dose: 1,000 mg Hydromorphone HCl (Dilaudid) 0.5 mg IV NOW STA Stop: 06/05/18 07:44 Last Admin: 06/05/18 07:50 Dose: 0.5 mg Ondansetron HCl (Zofran) 4 mg IV NOW STA Stop: 06/05/18 09:25 Last Admin: 06/05/18 09:40 Dose: 4 mg Medical Decision Making Laboratory Data Result diagrams: 06/05/18 07:20 06/05/18 07:20 Lab Results 06/05/18 06/05/18 Range/Units 07:20 07:20 WBC 8.99 (4.8-10.8) K/uL RBC 6.08 (4.7-6.1) M/uL Hgb 15.1 (14.0-18.0) g/dL Hct 46.4 (42-52) % MCV 76.3 L (80-100) fL MCH 24.8 L (25-34) pg MCHC 32.5 (32-36) g/dL RDW Std Deviation 40.2 (36.4-46.3) fL RDW Coeff of Bhupendra 14.5 (11.5-14.5) % Plt Count 129 L (130-400) K/uL MPV 9.7 (7.4-10.4) fL Immature Gran % (Auto) 0.2 % Neut % (Auto) 91.9 % Lymph % (Auto) 3.2 % [place] % (Auto) 3.9 % Eos % (Auto) 0.7 % Baso % (Auto) 0.1 % Immature Gran # (Auto) 0.02 (0.00-0.02) K/uL Neut # (Auto) 8.26 H (1.4-6.5) K/uL Lymph # (Auto) 0.29 L (1.2-3.4) K/uL [place] # (Auto) 0.35 (0.11-0.59) K/uL Eos # (Auto) 0.06 (0-0.5) K/uL Baso # (Auto) 0.01 (0-0.2) K/uL Sodium 136 (136-145) mmol/L Potassium 3.9 (3.5-5.1) mmol/L Chloride 100 (98-107) mmol/L Carbon Dioxide 26 (21-32) mmol/L Anion Gap 9.0 (3-11) BUN 19 H (7-18) mg/dl Creatinine 1.24 (0.6-1.4) mg/dl Est Cr Clr Drug Dosing 94.5 ml/min Est GFR ( Amer) 74.9 Est GFR (Non-Af Amer) 64.6 BUN/Creatinine Ratio 15.0 (10-20) Glucose 117 H (70-99) mg/dl Calcium 8.8 (8.5-10.1) mg/dl Total Bilirubin 0.5 (0.2-1) mg/dl AST 19 (15-37) U/L ALT 28 (12-78) U/L Alkaline Phosphatase 46 (45-117) U/L Total Protein 7.4 (6.4-8.2) gm/dl Albumin 4.0 (3.4-5.0) gm/dl Globulin 3.4 (2.5-4.0) gm/dl Albumin/Globulin Ratio 1.2 (0.9-2) Specimen Hemolysis Imaging Data Radiologist's Impression: XR ribs RT min 3V w CXR1V CLINICAL HISTORY: worsening r rib pain pain COMPARISON STUDY: 06/03/2018 FINDINGS: Nondisplaced fractures of the right fifth through eighth ribs. Nondisplaced fracture anterior right 10th rib. No evidence pneumothorax. Mildly progressive parenchymal infiltrate left base. Small left effusion. No evidence for pneumothorax. IMPRESSION: Nondisplaced fractures of right fifth through eighth ribs. Nondisplaced fracture anterior right ninth rib. Mildly progressive parenchymal infiltrate left base. No evidence for pneumothorax. The above report was generated using voice recognition software. It may contain grammatical, syntax or spelling errors. Electronically signed by: Madan Orlando M.D. 06/05/2018 8:15 AM MDM Narrative Patient was seen and evaluated as above in room B6. Review was performed of nursing notes and vital signs. After obtaining a thorough history and physical examination the above work up was performed. I thoroughly reviewed his previous visits. He fell this past Tuesday exiting his garage. He has fractured numerous right sided ribs. He was seen here and had a CT scan as well as a follow-up chest x-ray. He was doing well however his pain is increased. This is not controlled with the oral pain medication he was prescribed. He presents secondary to his pain. I believe that further evaluation and management is now warranted in the inpatient setting secondary to his intractable pain. He had oxycodone prior to arrival, fentanyl in route and Dilaudid here. He does appear to be in a great deal of pain. Concern is that he could also be developing a small pneumonia. X-ray as above. Case discussed with the attending physician as well as the hospitalist. Please refer to further documentation regarding his stay. I attest that I have personally reviewed the patient medication list. I attest that I have reviewed the patient's blood pressure and it was found to be elevated likely secondary to situation. IIn the evaluation and treatment of this patient, the following differential diagnoses were considered: Rib Fracture, Rib Contusion, Hemothorax, Pneumothorax , Pneumonia, Pleural Effusion. Impression & Plan Intractable pain, Fracture, ribs Discharge Plan Visit Data *Final* Discharge Date/Time: 06/05/18 10:14 Chief Complaint: Rib Injury/Pain ED Provider: Michelle Carballo ED Midlevel Provider: Omar Espinoza Discharge Problem: Intractable pain, Fracture, ribs Patient Disposition: Admitted As Inpatient Condition: Good Discharge Instructions Interventions: ED Discharge Assessment Last Done: 06/05/18 10:14
[2018-06-05 07:33] LABS: Basophils # (auto) 0.01 K/uL (0-0.2); Basophils % (auto) 0.1 %; Eosinophils # (auto) 0.06 K/uL (0-0.5); Eosinophils % (auto) 0.7 %; Hematocrit (blood only) 46.4 % (42-52); Hemoglobin 15.1 g/dL (14.0-18.0); Immature Granulocytes # (auto) 0.02 K/uL (0.00-0.02); Immature Granulocytes % (auto) 0.2 %; Lymphocytes # (auto) 0.29 K/uL (1.2-3.4); Lymphocytes % (auto) 3.2 %; Mean Corpuscular Hgb Conc 32.5 g/dL (32-36); Mean Corpuscular Volume 76.3 fL (80-100); Mean Platelet Volume 9.7 fL (7.4-10.4); Monocytes # (auto) 0.35 K/uL (0.11-0.59); Monocytes % (auto) 3.9 %; Neutrophils # (auto) 8.26 K/uL (1.4-6.5); Neutrophils % (auto) 91.9 %; Platelet Count 129 K/uL (130-400); RDW Coefficient of Variation 14.5 % (11.5-14.5); RDW Standard Deviation 40.2 fL (36.4-46.3); Red Blood Count 6.08 M/uL (4.7-6.1); White Blood Count 8.99 K/uL (4.8-10.8)
[2018-06-05] MEDS ORDERED: HYDROmorphone INJ 0.5 MG/0.5 ML SYR IV STA (07:43)
[2018-06-05 07:50] LABS: Calcium 8.8 mg/dl (8.5-10.1); Creatinine Clr Calc Pharmacy 94.5 ml/min; Est GFR (African American) 74.9; Est GFR (Non-African American) 64.6; Potassium 3.9 mmol/L (3.5-5.1)
[2018-06-05 07:54] LABS: Albumin Globulin Ratio 1.2 (0.9-2); Bilirubin,Total 0.5 mg/dl (0.2-1); Globulin 3.4 gm/dl (2.5-4.0); Total Protein 7.4 gm/dl (6.4-8.2)
--- NOTE | 2018-06-05 08:17 | XRay Report ---
XR ribs RT min 3V w CXR1V CLINICAL HISTORY: worsening r rib pain pain COMPARISON STUDY: 06/03/2018 FINDINGS: Nondisplaced fractures of the right fifth through eighth ribs. Nondisplaced fracture anteri or right 10th rib. No evidence pneumothorax. Mildly progressive parenchymal infiltrate left base. Sma ll left effusion. No evidence for pneumothorax. IMPRESSION: Nondisplaced fractures of right fifth through eighth ribs. Nondisplaced fracture anterio r right ninth rib. Mildly progressive parenchymal infiltrate left base. No evidence for pneumothorax. The above report was generated using voice recognition software. It may contain grammatical, syntax or spelling errors. Electronically signed by: Madan Orlando M.D. 06/05/2018 8:15 AM
[2018-06-05] MEDS ORDERED: ONDANSETRON INJ 2 MG/ML 2 ML VIAL IV STA (09:24)
--- NOTE | 2018-06-05 09:30 | History & Physical Report ---
Date of Service June 05, 2018 Assessment & Plan (1) Multiple rib fractures involving four or more ribs: s/p mechanical fall slipped on ice on driveway landed on rt side Cxray shows multiple rt sided rib fracture admitted for intractable pain pt is having severe N/V with narcotics ( intolerant of morphine and Dilaudid ) ordered for IV toradol lidoderm Patch incentive spirometry (2) Fall due to ice or snow: slipped on ice -on Driveway no complain of dizzy spell , lightheadedness , chest pain or SOB before or after the fall (3) Heart valve replaced: s/p procine Aortic valve replacement no complain of SOB , [place]MAN CODE STATUS : FULL CODE DVT PROPHYLAXIS : SCD AND TEDS AMBULATE DISPOSITION: expected to be discharged home when medically stable History of Present Illness Chief Complaint: fall /rt sided rib fracture /intractable pain Primary Care Provider: Brenda Nunez MD Mr. Holliday is a 58-year-old white male who was admitted due to intractable right -sided chest wall pain. T he patient suffered a fall on the ice 3 days ago with injury to the right ribs with discovery of multiple nondisplaced rib fractures involving 6 separate ribs. was seen in ER 2 days back , discharged home with pain medication pt was worse this AM with severe spasm in rt side no fever or chills no cough Xray shows : non displaced multiple ribs on right will be admitted to medical for pain control Allergies Allergy/AdvReac Type Severity Reaction Status Date / Time chocolate flavor Allergy Mild HIVES Verified 06/05/18 07:02 latex Allergy Mild RASH Verified 06/05/18 07:02 Sulfa (Sulfonamide Allergy Rash Unverified 06/05/18 07:02 Antibiotics) erythromycin base AdvReac Mild GI SYMPTOMS Verified 06/05/18 07:02 gluten AdvReac Mild GI SYMPTOMS Verified 06/05/18 07:02 furosemide [From Lasix] AdvReac Diarrhea Unverified 06/05/18 07:02 CEPHALSPORINS Allergy Mild RASH Uncoded 06/05/18 07:02 TREES Allergy Mild SHORTNESS Uncoded 06/05/18 07:02 OF BREATH NARCOTICS AdvReac Severe Nausea/vomi Uncoded 06/05/18 07:02 ting Home Medications Home Medications Medication Instructions Recorded Confirmed Type albuterol sulfate [ProAir 2 puff INHALATION Q6H PRN 06/03/18 06/05/18 History RespiClick] aspirin 162 mg PO QPM 06/03/18 06/05/18 History bupropion HCl 150 mg PO BID 06/03/18 06/05/18 History duloxetine 20 mg PO DAILY 06/03/18 06/05/18 History eplerenone 50 mg PO DAILY 06/03/18 06/05/18 History esomeprazole magnesium 20 mg PO DAILY 06/03/18 06/05/18 History fluticasone [Flonase Allergy 2 spray INTRANASAL DAILY 06/03/18 06/05/18 History Relief] hydrochlorothiazide 37.5 mg PO DAILY 06/03/18 06/05/18 History hydroxychloroquine 400 mg PO HS 06/03/18 06/05/18 History levocetirizine 5 mg PO HS 06/03/18 06/05/18 History levothyroxine 200 mcg PO DAILY 06/03/18 06/05/18 History lidocaine [Lidoderm] 1 patch TOP DAILY #30 ea 06/03/18 06/05/18 Rx metoprolol succinate 25 mg PO QPM 06/03/18 06/05/18 History metoprolol succinate 50 mg PO QAM 06/03/18 06/05/18 History montelukast 10 mg PO PM 06/03/18 06/05/18 History ondansetron 4 mg PO Q4H PRN #30 tab 06/03/18 06/05/18 Rx oxycodone 5 mg PO Q4H PRN #18 tab 06/03/18 06/05/18 Rx testosterone 2 dose TOPICAL 4XWK 06/03/18 06/05/18 History testosterone 3 dose TOPICAL 3XWK 06/03/18 06/05/18 History trazodone 50 mg PO HS 06/03/18 06/05/18 History Past Med/Surg History Medical History Heart disease (Chronic) Hypertension (Chronic) Kidney disease (Chronic) Asthma (Chronic) Stomach problems (Chronic) Bicuspid aortic valve (Chronic) Tenzin's disease (Chronic) Enlarged aorta (Chronic) Depression (Chronic) Anxiety (Chronic) Surgical History Heart valve replaced (Resolved) Social History Current Living Situation: Spouse Other Information That Helps Us Care for You: No Feels Safe at Home: Yes Safety Concerns: Feels Safe At This Time Smoking Status: Never smoker Hx Alcohol Use: No Hx Substance Use: No Beliefs That Will Affect Care: None Preferred Language: Gabonese Communication Ability: Effective Review of Systems All systems reviewed & are unremarkable except as noted in HPI & below Constitutional: as per Subjective / HPI and + body aches; no fever and no chills on right chest wall Eyes: as per Subjective / HPI; no dry eyes, no decreased night vision, no eye pain and no loss of peripheral vision Ear, Nose, Mouth, Throat: as per Subjective / HPI; no dizziness Respiratory: as per Subjective / HPI and + pain on inspiration; no cough, no change in sputum and no dyspnea on right ; due to multiple rib fracture Cardiovascular: as per Subjective / HPI; no palpitations, no syncope and no edema Gastrointestinal: as per Subjective / HPI; no abdominal pain Neurologic: as per Subjective / HPI and + falls (secondary to slipping on ice and losing balance ); no gait abnormality, no unsteadiness, no localized weakness, no paralysis, no loss of sensation, no numbness, no paresthesia, no tremor(s), no seizure-like activity, no dizziness, no syncope, no abnormal speech, no confusion and no memory loss Physical Exam 2 Vital Signs (Past 24 Hours): Last Vital Signs Temp 36.8 C 06/05/18 06:47 Pulse 67 06/05/18 06:55 Resp 18 06/05/18 06:55 BP 145/89 H 06/05/18 06:47 Pulse Ox 96 06/05/18 06:55 Physical Exam: GENERAL: In moderate distress due to rt sided chest pain HEENT: Sclera nonicteric, pink-purple bilateral equal reactive to light extraocular muscle intact Normal oral mucosa, neck: No JVD, no thyromegaly, trachea midline Lungs: poor respiratory effort due to rt sided chest wall pain , no wheeze or rales Cardiovascular: Regular S1 and S2, no murmur or gallop, no JVD, no lower extremity edema Abdomen: Soft, nontender, bowel sounds active, Extremities: no evidence of ecchymosis on rt chest wall /+ tenderness Neuro: No focal neurological deficit, no dysarthria, no facial droop Psych: Alert awake oriented x3: Euthymic Skin: No rash LYMPH NODES: No cervical lymphadenopathy _ (1) Fall due to ice or snow Encounter type: initial encounter Qualified Code(s): W00.9XXA - Unspecified fall due to ice and snow, initial encounter
[2018-06-05] MEDS ORDERED: PROMETHAZINE HCL 12.5 MG in SODIUM CHLORIDE 0.9% 50 ML IV PRN (09:31)
[2018-06-05] MEDS ORDERED: GUAIFENESIN/DEXTROM SYRUP 100MG/10MG 5ML UDC PO PRN (09:32)
[2018-06-05] MEDS ORDERED: cefTRIAXone SODIUM 1000MG/50ML D5W ONE (09:39)
[2018-06-05] MEDS ORDERED: TESTOSTERONE TOP SCH (10:52)
[2018-06-05] MEDS ORDERED: ALBUTEROL HFA INHALER 8.5 GM INH PRN (10:52)
[2018-06-05] MEDS ORDERED: LIDOCAINE 5% 1 PATCH TD SCH (10:52)
[2018-06-05] MEDS ORDERED: ONDANSETRON 4 MG OD TAB PO PRN (10:52)
[2018-06-05] MEDS ORDERED: POLYETHYLENE (MIRALAX) 17 GM PACK PO PRN (10:52)
[2018-06-05] MEDS ORDERED: MAGNESIUM HYDROXIDE SUSP 30 ML UDC PO PRN (10:52)
[2018-06-05] MEDS ORDERED: ACETAMINOPHEN 325 MG TAB PO PRN (10:52)
[2018-06-05] MEDS ORDERED: ONDANSETRON INJ 2 MG/ML 2 ML VIAL IV PRN (10:52)
[2018-06-05] MEDS ORDERED: OXYCODONE HCL IR 5 MG TAB (IMMEDIATE RELEASE) PO PRN (10:52)
[2018-06-05] MEDS ORDERED: ALUMINUM/MAGNESIUM SUSP 30 ML UDC PO PRN (10:52)
[2018-06-05] MEDS ORDERED: hydroCHLOROthiazide 25 MG TAB PO SCH (10:52)
[2018-06-05] MEDS: HYDROmorphone INJ 0.5 MG/0.5 ML SYR IV PRN ×2 (10:59→15:09)
[2018-06-05] MEDS: LIDOCAINE 5% 1 PATCH TD SCH (11:26)
[2018-06-05] MEDS: KETOROLAC TROMETHAMINE 15 MG/ML VIAL IV PRN ×2 (12:18→20:27)
[2018-06-05] MEDS: FLUTICASONE PROPIONATE NA SPR 16 GM BTL NAE SCH (13:07)
[2018-06-05] MEDS: LEVOTHYROXINE SODIUM 200 MCG TABLET PO SCH (13:08)
[2018-06-05] MEDS: METOPROLOL SUCC 50MG EXT REL TAB PO SCH (13:08)
[2018-06-05] MEDS: DULOXETINE HCL 20 MG CAP PO SCH (13:08)
[2018-06-05] MEDS: BuPROPion SR 150 MG TABCR PO SCH ×2 (13:08→17:47)
[2018-06-05] MEDS: PANTOprazole 40 MG TAB PO SCH (13:09)
[2018-06-05] MEDS: CYCLOBENZAPRINE HCL 10 MG TAB PO SCH ×2 (14:28→20:41)
[2018-06-05] MEDS: SODIUM CHLORIDE 0.9% 1000ML 1,000 ML IV SCH (15:56)
[2018-06-05] MEDS ORDERED: LEVOCETIRIZINE 5 MG SCH (16:00)
[2018-06-05] MEDS ORDERED: EPLERENONE: ORDER AWAITING ACTION SCH (16:00)
[2018-06-05] MEDS: TESTOSTERONE: ORDER AWAITING ACTION SCH (17:47)
[2018-06-05] MEDS: HYDROXYCHLOROQUINE SULFATE 200 MG TAB PO SCH (20:41)
[2018-06-05] MEDS: TRAZODONE HCL 50 MG TAB PO SCH (20:41)
[2018-06-05] MEDS: MONTELUKAST SODIUM 10 MG TABLET PO SCH (20:41)
[2018-06-05] MEDS: METOPROLOL SUCC 25MG EXT REL TAB PO SCH (20:41)
[2018-06-05] MEDS: LEVOCETIRIZINE 5 MG PO SCH (20:42)
[2018-06-05] MEDS: ASPIRIN 81 MG CHEW PO SCH (20:42)
[2018-06-06] MEDS: TESTOSTERONE: ORDER AWAITING ACTION SCH ×4 (00:41→23:36)
[2018-06-06] MEDS: KETOROLAC TROMETHAMINE 15 MG/ML VIAL IV PRN ×2 (03:02→15:08)
[2018-06-06] MEDS: SODIUM CHLORIDE 0.9% 1000ML 1,000 ML IV SCH ×2 (03:03→13:47)
[2018-06-06] MEDS: LEVOTHYROXINE SODIUM 200 MCG TABLET PO SCH (05:45)
--- NOTE | 2018-06-06 08:14 | XRay Report ---
XR chest 2V routine CLINICAL HISTORY: multiple rt sided rib fracture /pneumonia trauma COMPARISON STUDY: 05/28/2017 FINDINGS: Right rib fractures are again noted. Right lung is clear. No evidence pneumothorax. Mild left basilar atelectatic/infiltrative change. Mild stable cardiomegaly. IMPRESSION: 1. Mild improvement in infiltrative change/atelectatic change left base. 2. Unchanged right rib fractures. 3. Study is negative for pneumothorax. The above report was generated using voice recognition software. It may contain grammatical, syntax or spelling errors. Electronically signed by: Madan Orlando M.D. 06/06/2018 8:13 AM
[2018-06-06] MEDS: BuPROPion SR 150 MG TABCR PO SCH ×2 (08:47→17:21)
[2018-06-06] MEDS: FLUTICASONE PROPIONATE NA SPR 16 GM BTL NAE SCH (08:47)
[2018-06-06] MEDS: CYCLOBENZAPRINE HCL 10 MG TAB PO SCH ×3 (08:47→20:22)
[2018-06-06] MEDS: METOPROLOL SUCC 50MG EXT REL TAB PO SCH (08:47)
[2018-06-06] MEDS: PANTOprazole 40 MG TAB PO SCH (08:47)
[2018-06-06] MEDS: DULOXETINE HCL 20 MG CAP PO SCH (08:47)
[2018-06-06] MEDS: EPLERENONE 50 MG PO SCH (08:48)
[2018-06-06] MEDS: LIDOCAINE 5% 1 PATCH TD SCH (08:48)
--- NOTE | 2018-06-06 09:06 | Pain Management Consultation ---
Date of Consultation June 06, 2018 Assessment & Plan (1) Intractable pain: Present on Admission?: Yes (2) Fracture, ribs: Encounter type: Fracture healing: Fracture type: Laterality : Rib fracture type: Present on Admission?: Yes (3) Multiple rib fractures involving four or more ribs: 1. Patient with right posterior lateral anterior chest wall pain with a fall history and findings of 6 nondisplaced rib fractures. Patient is not a candidate for interventional treatment due to the number of ribs involved. Patient has a history of opioid intolerance due to nausea and vomiting. Recommend continuing with Toradol as needed without change 2. Will discontinue oxycodone due to history of intolerability 3. Will discontinue Lidoderm patch due to lack of perceived efficacy 4. Recommend a trial of Nucynta 50 mg 1 tablet p.o. every 4 hours for breakthrough pain to assess efficacy and tolerability for discharge planning purposes 5. Will adjust MiraLAX to daily use due to complaints of constipation and abdominal fullness Present on Admission?: Yes History of Present Illness Reason for Consultation: Intractable chest wall pain secondary to history of multiple rib fractures Attending Physician: Sirena Vo MD History of Present Illness Mr. Holliday is a 58-year-old white male who was admitted due to intractable right -sided chest wall pain. The patient suffered a fall on the ice 3 days ago with injury to the right ribs with discovery of multiple nondisplaced rib fractures involving 6 separate ribs. The patient was also reporting some right-sided elbow and shoulder pain which he feels is improved. He does feel that his right -sided chest wall pain is slightly improved compared to yesterday. He does find Toradol to be effective at diminishing the severity of his pain. His pain remains exacerbated with movement, deep breathing, coughing or sneezing activities. The pain is in the posterior lateral and anterior chest wall on the right side only without radiation. He is unable to tolerate opiate therapy due to nausea. He reported multiple episodes of emesis yesterday after utilization of oxycodone. Pain is currently a 5-6/10 ranging between a 4-9/10. Patient reports some mild abdominal fullness. He has not expressed a bowel movement in the past 4-5 days. He is passing some gas. Patient denies benefit from utilization of Lidoderm patch. He denies difficulties with shortness of breath or hemoptysis. Patient has a prior history of aortic valve repair due to bicuspid aortic valve. He reports some residual discomfort in the anterior chest wall since the time of the surgical procedure approximately 2 years ago. Patient is a non-smoker. He denies any further constitutional complaints at this time. Pain Assessment Full Body Front + Back: 2 1. Lateral and anterior chest wall 2. Posterior and lateral chest wall Pain scale - at its best (0-10): 4 Pain scale - at its worst (0-10): 9 Allergies Allergy/AdvReac Type Severity Reaction Status Date / Time chocolate flavor Allergy Mild HIVES Verified 06/05/18 07:02 latex Allergy Mild RASH Verified 06/05/18 07:02 Sulfa (Sulfonamide Allergy Rash Unverified 06/05/18 07:02 Antibiotics) erythromycin base AdvReac Mild GI SYMPTOMS Verified 06/05/18 07:02 gluten AdvReac Mild GI SYMPTOMS Verified 06/05/18 07:02 furosemide [From Lasix] AdvReac Diarrhea Unverified 06/05/18 07:02 CEPHALSPORINS Allergy Mild RASH Uncoded 06/05/18 07:02 TREES Allergy Mild SHORTNESS Uncoded 06/05/18 07:02 OF BREATH NARCOTICS AdvReac Severe Nausea/vomi Uncoded 06/05/18 07:02 ting Home Medications Home Medications Medication Instructions Recorded Confirmed Type albuterol sulfate [ProAir 2 puff INHALATION Q6H PRN 06/03/18 06/05/18 History RespiClick] aspirin 162 mg PO QPM 06/03/18 06/05/18 History bupropion HCl 150 mg PO BID 06/03/18 06/05/18 History duloxetine 20 mg PO DAILY 06/03/18 06/05/18 History eplerenone 50 mg PO DAILY 06/03/18 06/05/18 History esomeprazole magnesium 20 mg PO DAILY 06/03/18 06/05/18 History fluticasone [Flonase Allergy 2 spray INTRANASAL DAILY 06/03/18 06/05/18 History Relief] hydrochlorothiazide 37.5 mg PO DAILY 06/03/18 06/05/18 History hydroxychloroquine 400 mg PO HS 06/03/18 06/05/18 History levocetirizine 5 mg PO HS 06/03/18 06/05/18 History levothyroxine 200 mcg PO DAILY 06/03/18 06/05/18 History lidocaine [Lidoderm] 1 patch TOP DAILY #30 ea 06/03/18 06/05/18 Rx metoprolol succinate 25 mg PO QPM 06/03/18 06/05/18 History metoprolol succinate 50 mg PO QAM 06/03/18 06/05/18 History montelukast 10 mg PO PM 06/03/18 06/05/18 History ondansetron 4 mg PO Q4H PRN #30 tab 06/03/18 06/05/18 Rx oxycodone 5 mg PO Q4H PRN #18 tab 06/03/18 06/05/18 Rx testosterone 2 dose TOPICAL 4XWK 06/03/18 06/05/18 History testosterone 3 dose TOPICAL 3XWK 06/03/18 06/05/18 History trazodone 50 mg PO HS 06/03/18 06/05/18 History Patient History Medical History Heart disease (Chronic) Hypertension (Chronic) Kidney disease (Chronic) Asthma (Chronic) Stomach problems (Chronic) Bicuspid aortic valve (Chronic) Tenzin's disease (Chronic) Enlarged aorta (Chronic) Depression (Chronic) Anxiety (Chronic) Surgical History Heart valve replaced (Resolved) Social History Current Living Situation: Spouse Other Information That Helps Us Care for You: No Feels Safe at Home: Yes Safety Concerns: Feels Safe At This Time Smoking Status: Never smoker Hx Alcohol Use: No Hx Substance Use: No Beliefs That Will Affect Care: None Preferred Language: Telugu Communication Ability: Effective Review of Systems Constitutional: Negative for fever, chills, sweats Eyes: Negative for eye pain, photophobia, drainage Ear, nose, mouth, throat: Negative for ear pain, nasal congestion, mouth lesions , change in voice Respiratory: Negative for wheezing, sputum production Cardiovascular: Negative for chest pain, palpitations, calf pain Gastrointestinal: Negative for abdominal pain, belching, bloating Genitourinary: Negative for dysuria, urinary incontinence, urinary urgency Musculoskeletal: Negative for deformities Integumentary: Negative for nail changes, skin yellowing, pruritus Neurological: Negative for abnormal speech, seizure type activity Physical Exam 2 Vital Signs (Past 24 Hours): Last Vital Signs Temp 37.2 C 06/06/18 07:54 Pulse 67 06/06/18 07:54 Resp 18 06/06/18 07:54 BP 155/84 H 06/06/18 07:54 Pulse Ox 94 06/06/18 07:54 Physical Exam: General: Patient was sitting in wheelchair being transported from x-ray upon arrival. He was able to stand and transfer to the chair with moderate discomfort. Speech and thought process appropriate. Mood and affect appropriate. Cognition intact. Head: Normocephalic atraumatic. ENT: No evidence of nasal or oral mucosal lesion. Neck: Supple without adenopathy. Full range of motion without limitation. Nontender over the midline, paravertebral or trapezius musculature. Upper extremities: Patient is nontender over the deltoid, posterior rotator cuff insertions and bicipital tendon region to direct palpation bilaterally. Patient has full range of motion of the shoulder and elbow with guarding. He is nontender to palpation over the right elbow region. Chest wall: Patient is exquisitely tender over the right posterior lateral and anterior chest wall to palpation. He is tender with AP as well as lateral compression of the chest wall on the right side. Patient has a well-healed anterior incision over the sternal region status post aortic valve repair. Abdomen: Protuberant. Soft and nondistended. No rebound or guarding. No organomegaly. Bowel sounds are active. Lower extremities: SLR negative. Strength testing 5/5 and equal. Sensation intact without deficits. Neurologic: Cranial nerves grossly intact. The patient was witnessed transferring from wheel chair to chair.
[2018-06-06] MEDS ORDERED: POLYETHYLENE (MIRALAX) 17 GM PACK ONE (09:10)
[2018-06-06] MEDS: TAPENTADOL HCL 50 MG TAB PO PRN ×2 (09:26→22:58)
[2018-06-06] MEDS: POLYETHYLENE (MIRALAX) 17 GM PACK PO SCH (09:26)
[2018-06-06] MEDS: cefTRIAXone SODIUM 1,000 MG/50 ML BAG IV SCH (10:49)
--- NOTE | 2018-06-06 18:43 | Hospitalist Progress Note ---
Date of Service June 06, 2018 Assessment & Plan (1) Multiple rib fractures involving four or more ribs: s/p mechanical fall slipped on ice on driveway landed on rt side Cxray shows multiple rt sided rib fracture admitted for intractable pain pt is having severe N/V with narcotics ( intolerant of morphine and Dilaudid ) causing worsening of pain IV dilaudid D/oumar ordered for IV toradol incentive spirometry appreciate input from pain management ordered [place] (2) Fall due to ice or snow: slipped on ice -on Driveway no complain of dizzy spell , lightheadedness , chest pain or SOB before or after the fall (3) Heart valve replaced: s/p procine Aortic valve replacement no complain of SOB , GOODMAN CODE STATUS : FULL CODE DVT PROPHYLAXIS : SCD AND TEDS AMBULATE DISPOSITION: expected to be discharged home in next 24-48 hrs when pain well controlled Subjective pain better controlled with Toradol PRN IV narcotic ( dilaudid ) D/oumar due to N/V appreciate pain management consult started on Nucynta no complain of fever or chills no cough has been able to be OOB to chair Physical Exam 2 Vital Signs (Past 24 Hours): Last Vital Signs Temp 37.1 C 06/06/18 15:14 Pulse 72 06/06/18 15:14 Resp 16 06/06/18 15:14 BP 156/88 H 06/06/18 15:14 Pulse Ox 91 06/06/18 15:14 Physical Exam: GENERAL: No sign of distress, HEENT: Sclera nonicteric, Lungs: poor respiratory effort due to rt sided rib cage pain no wheeze or rales Cardiovascular: Regular S1 and S2, no murmur or gallop, no JVD, no lower extremity edema Abdomen: Soft, nontender, bowel sounds active, Extremities: tenderness on rt lateral chest wall with readiation to back no eccymosis Neuro: No focal neurological deficit, no dysarthria, no facial droop Psych: Alert awake oriented x3: Euthymic Skin: No rash LYMPH NODES: No cervical lymphadenopathy _ (1) Fall due to ice or snow Encounter type: initial encounter Qualified Code(s): W00.9XXA - Unspecified fall due to ice and snow, initial encounter
[2018-06-06] MEDS: TRAZODONE HCL 50 MG TAB PO SCH (20:21)
[2018-06-06] MEDS: ASPIRIN 81 MG CHEW PO SCH (20:21)
[2018-06-06] MEDS: LEVOCETIRIZINE 5 MG PO SCH (20:22)
[2018-06-06] MEDS: HYDROXYCHLOROQUINE SULFATE 200 MG TAB PO SCH (20:23)
[2018-06-06] MEDS: MONTELUKAST SODIUM 10 MG TABLET PO SCH (20:23)
[2018-06-06] MEDS: METOPROLOL SUCC 25MG EXT REL TAB PO SCH (20:24)
[2018-06-07] MEDS: LEVOTHYROXINE SODIUM 200 MCG TABLET PO SCH (05:22)
[2018-06-07] MEDS: TAPENTADOL HCL 50 MG TAB PO PRN ×3 (05:22→21:39)
[2018-06-07] MEDS: TESTOSTERONE: ORDER AWAITING ACTION SCH ×2 (08:37→16:06)
[2018-06-07] MEDS: BuPROPion SR 150 MG TABCR PO SCH ×2 (08:39→16:07)
[2018-06-07] MEDS: CYCLOBENZAPRINE HCL 10 MG TAB PO SCH ×3 (08:39→21:32)
[2018-06-07] MEDS: PANTOprazole 40 MG TAB PO SCH (08:40)
[2018-06-07] MEDS: EPLERENONE 50 MG PO SCH (08:40)
[2018-06-07] MEDS: DULOXETINE HCL 20 MG CAP PO SCH (08:40)
[2018-06-07] MEDS: METOPROLOL SUCC 50MG EXT REL TAB PO SCH (08:40)
[2018-06-07] MEDS: POLYETHYLENE (MIRALAX) 17 GM PACK PO SCH (08:40)
[2018-06-07] MEDS: FLUTICASONE PROPIONATE NA SPR 16 GM BTL NAE SCH (08:41)
[2018-06-07] MEDS: cefTRIAXone SODIUM 1,000 MG/50 ML BAG IV SCH (10:21)
--- NOTE | 2018-06-07 10:44 | Pain Management Progress Note ---
Date of Service June 07, 2018 Assessment & Plan (1) Intractable pain: Continue Nucynta. Patient's pain is better controlled. We will sign off on the patient. Please call for any questions or concerns. (2) Multiple rib fractures involving four or more ribs: Subjective Mr. Holliday is a 58 year old white male with #6 rib fractures on the right. Patient states that the pain better controlled since the Oxycodone was discontinued and he was placed on Nucynta. He states that the Nucynta is more effective towards diminishing his pain and is not causing headaches. He is able to move around better since starting the Nucynta. No SOB, cough, constitutional complaints. Physical Exam 2 Vital Signs (Past 24 Hours): Last Vital Signs Temp 37.5 C 06/07/18 07:45 Pulse 69 06/07/18 07:45 Resp 18 06/07/18 07:45 BP 133/70 06/07/18 07:45 Pulse Ox 91 06/07/18 07:45 Physical Exam: GENERAL: Speech and cognition is intact. Mood and affect is appropriate. In no acute distress. NEURO: CN II-XII grossly intact with no focal deficits noted.
[2018-06-07] MEDS ORDERED: BISACODYL 5 MG TABEC PO ONE (16:52)
--- NOTE | 2018-06-07 17:27 | Hospitalist Progress Note ---
Date of Service June 07, 2018 Assessment & Plan (1) Multiple rib fractures involving four or more ribs: (2) Fall due to ice or snow: s/p mechanical fall slipped on ice on driveway landed on rt side Cxr showed multiple right sided rib fracture Pain management on board Pain control with tapentadol incentive spirometry Pain improves (3) Heart valve replaced: s/p procine Aortic valve replacement no complain of SOB , GOODMAN CODE STATUS : FULL CODE DVT PROPHYLAXIS : SCD AND TEDS AMBULATE DISPOSITION: Discharge home tomorrow Subjective Pt was seen and examined Sitting in chair with no distress Pt said that pain seems to improve with the nucynta Denies any chest pain, palpitation dizziness and SOB Physical Exam 2 Vital Signs (Past 24 Hours): Last Vital Signs Temp 37.0 C 06/07/18 15:28 Pulse 68 06/07/18 15:28 Resp 18 06/07/18 15:28 BP 147/85 H 06/07/18 15:28 Pulse Ox 92 06/07/18 15:28 Physical Exam: General- No acute distress Head- atraumatic Eyes- PERRL, EOMI, ENT- oropharynx clear Neck- supple, no JVD Lungs- clear to auscultation Heart- regular rhythm; +murmur Abdomen- normal bowel sounds, soft, nontender Extremities- no calf tenderness Neuro- alert, oriented x 3; PERRL, EOMI; no facial palsy; no dysarthria Skin- warm & dry _ (1) Fall due to ice or snow Encounter type: initial encounter Qualified Code(s): W00.9XXA - Unspecified fall due to ice and snow, initial encounter
[2018-06-07] MEDS: ASPIRIN 81 MG CHEW PO SCH (21:31)
[2018-06-07] MEDS: TRAZODONE HCL 50 MG TAB PO SCH (21:32)
[2018-06-07] MEDS: LEVOCETIRIZINE 5 MG PO SCH (21:33)
[2018-06-07] MEDS: HYDROXYCHLOROQUINE SULFATE 200 MG TAB PO SCH (21:34)
[2018-06-07] MEDS: MONTELUKAST SODIUM 10 MG TABLET PO SCH (21:34)
[2018-06-07] MEDS: METOPROLOL SUCC 25MG EXT REL TAB PO SCH (21:35)
[2018-06-08] MEDS: TESTOSTERONE: ORDER AWAITING ACTION SCH ×2 (00:48→08:47)
[2018-06-08] MEDS: LEVOTHYROXINE SODIUM 200 MCG TABLET PO SCH (05:18)
[2018-06-08] MEDS: CYCLOBENZAPRINE HCL 10 MG TAB PO SCH ×2 (08:48→13:17)
[2018-06-08] MEDS: BuPROPion SR 150 MG TABCR PO SCH (08:48)
[2018-06-08] MEDS: PANTOprazole 40 MG TAB PO SCH (08:48)
[2018-06-08] MEDS: METOPROLOL SUCC 50MG EXT REL TAB PO SCH (08:48)
[2018-06-08] MEDS: FLUTICASONE PROPIONATE NA SPR 16 GM BTL NAE SCH (08:49)
[2018-06-08] MEDS: DULOXETINE HCL 20 MG CAP PO SCH (08:49)
[2018-06-08] MEDS: EPLERENONE 50 MG PO SCH (08:50)
[2018-06-08] MEDS: POLYETHYLENE (MIRALAX) 17 GM PACK PO SCH (08:50)
[2018-06-08] MEDS: cefTRIAXone SODIUM 1,000 MG/50 ML BAG IV SCH (09:01)
--- NOTE | 2018-06-08 14:50 | Hospitalist Progress Note ---
Date of Service June 08, 2018 Assessment & Plan (1) Multiple rib fractures involving four or more ribs: (2) Fall due to ice or snow: s/p mechanical fall after slipping on ice on the driveway landed on rt side Cxr showed multiple right sided rib fracture Pain management on board Pain control with tapentadol Continue incentive spirometry Pain improves (3) Lung infiltrate: CXR showed mild improvement in infiltrative change/atelectatic change left base. On IV rocephin Will change to Augmentin to complete the abx course Stable (4) Heart valve replaced: s/p procine Aortic valve replacement no complain of SOB , GOODMAN CODE STATUS : FULL CODE DVT PROPHYLAXIS : SCD AND TEDS AMBULATE DISPOSITION: Discharge home today Follow up with your primary care provider with Dr. Nunez on 06/13 @ 10:45 AM Subjective Pt was seen and examined Sitting in chair with no distress Pt said that he feels much better He said that pain improves Denies any chest pain, palpitation, dizziness and SOB Physical Exam 2 Vital Signs (Past 24 Hours): Last Vital Signs Temp 36.9 C 06/08/18 07:43 Pulse 64 06/08/18 07:43 Resp 18 06/08/18 07:43 BP 132/87 06/08/18 07:43 Pulse Ox 92 06/08/18 07:43 Physical Exam: General- No acute distress Head- atraumatic Eyes- PERRL, EOMI, ENT- oropharynx clear Neck- supple, no JVD Lungs- clear to auscultation Heart- regular rhythm; +murmur Abdomen- normal bowel sounds, soft, nontender Extremities- no calf tenderness Neuro- alert, oriented x 3; PERRL, EOMI; no facial palsy; no dysarthria Skin- warm & dry _ (1) Fall due to ice or snow Encounter type: initial encounter Qualified Code(s): W00.9XXA - Unspecified fall due to ice and snow, initial encounter
--- NOTE | 2018-06-10 07:33 | Discharge Summary ---
Date of Service 06/08/2018 Admission HPI Per Admitting Provider Mr. Holliday is a 58-year-old white male who was admitted due to intractable right -sided chest wall pain. T he patient suffered a fall on the ice 3 days ago with injury to the right ribs with discovery of multiple nondisplaced rib fractures involving 6 separate ribs. was seen in ER 2 days back , discharged home with pain medication pt was worse this AM with severe spasm in rt side no fever or chills no cough Xray shows : non displaced multiple ribs on right will be admitted to medical for pain control Admission Exam Per Admitting Provider GENERAL: In moderate distress due to rt sided chest pain HEENT: Sclera nonicteric, pink-purple bilateral equal reactive to light extraocular muscle intact Normal oral mucosa, neck: No JVD, no thyromegaly, trachea midline Lungs: poor respiratory effort due to rt sided chest wall pain , no wheeze or rales Cardiovascular: Regular S1 and S2, no murmur or gallop, no JVD, no lower extremity edema Abdomen: Soft, nontender, bowel sounds active, Extremities: no evidence of ecchymosis on rt chest wall /+ tenderness Neuro: No focal neurological deficit, no dysarthria, no facial droop Psych: Alert awake oriented x3: Euthymic Skin: No rash LYMPH NODES: No cervical lymphadenopathy Principal Diagnosis Multiple rib fractures involving four or more ribs Fall due to ice or snow Lung infiltrate Discharge Exam General- No acute distress Head- atraumatic Eyes- PERRL, EOMI, ENT- oropharynx clear Neck- supple, no JVD Lungs- clear to auscultation Heart- regular rhythm; +murmur Abdomen- normal bowel sounds, soft, nontender Extremities- no calf tenderness Neuro- alert, oriented x 3; PERRL, EOMI; no facial palsy; no dysarthria Skin- warm & dry Discharge Data Allergies Allergy/AdvReac Type Severity Reaction Status Date / Time chocolate flavor Allergy Mild HIVES Verified 06/05/18 07:02 latex Allergy Mild RASH Verified 06/05/18 07:02 Sulfa (Sulfonamide Allergy Rash Unverified 06/05/18 07:02 Antibiotics) erythromycin base AdvReac Mild GI SYMPTOMS Verified 06/05/18 07:02 gluten AdvReac Mild GI SYMPTOMS Verified 06/05/18 07:02 furosemide [From Lasix] AdvReac Diarrhea Unverified 06/05/18 07:02 CEPHALSPORINS Allergy Mild RASH Uncoded 06/05/18 07:02 TREES Allergy Mild SHORTNESS Uncoded 06/05/18 07:02 OF BREATH NARCOTICS AdvReac Severe Nausea/vomi Uncoded 06/05/18 07:02 ting Consultations 06/05/18 08:44 ED Decision to Admit Stat 06/05/18 11:04 Consult Pain Management Routine Ordered Studies XR ribs RT min 3V w CXR1V CLINICAL HISTORY: worsening r rib pain pain COMPARISON STUDY: 06/03/2018 FINDINGS: Nondisplaced fractures of the right fifth through eighth ribs. Nondisplaced fracture anterior right 10th rib. No evidence pneumothorax. Mildly progressive parenchymal infiltrate left base. Small left effusion. No evidence for pneumothorax. IMPRESSION: Nondisplaced fractures of right fifth through eighth ribs. Nondisplaced fracture anterior right ninth rib. Mildly progressive parenchymal infiltrate left base. No evidence for pneumothorax. The above report was generated using voice recognition software. It may contain grammatical, syntax or spelling errors. Electronically signed by: Madan Orlando M.D. 06/05/2018 8:15 AM Dictated: 06/05/1813 Transcribed: 06/05/1813 XR chest 2V routine CLINICAL HISTORY: multiple rt sided rib fracture /pneumonia trauma COMPARISON STUDY: 05/28/2017 FINDINGS: Right rib fractures are again noted. Right lung is clear. No evidence pneumothorax. Mild left basilar atelectatic/infiltrative change. Mild stable cardiomegaly. IMPRESSION: 1. Mild improvement in infiltrative change/atelectatic change left base. 2. Unchanged right rib fractures. 3. Study is negative for pneumothorax. The above report was generated using voice recognition software. It may contain grammatical, syntax or spelling errors. Electronically signed by: Madan Orlando M.D. 06/06/2018 8:13 AM Dictated: 06/06/18810 Transcribed: 06/06/18810 Hospital Course (1) Multiple rib fractures involving four or more ribs: s/p mechanical fall slipped on ice on driveway landed on rt side Cxray shows multiple rt sided rib fracture admitted for intractable pain pt is having severe N/V with narcotics ( intolerant of morphine and Dilaudid ) causing worsening of pain IV dilaudid D/oumar ordered for IV toradol incentive spirometry appreciate input from pain management ordered Nycynta (2) Fall due to ice or snow: s/p mechanical fall after slipping on ice on the driveway landed on rt side Cxr showed multiple right sided rib fracture Pain management on board Pain control with tapentadol Continue incentive spirometry Pain improves (3) Lung infiltrate: CXR showed mild improvement in infiltrative change/atelectatic change left base. On IV rocephin Will change to Augmentin to complete the abx course Stable (4) Heart valve replaced: s/p procine Aortic valve replacement no complain of SOB , GOODMAN CODE STATUS : FULL CODE DVT PROPHYLAXIS : SCD AND TEDS AMBULATE DISPOSITION: Discharge home today Follow up with your primary care provider with Dr. Nunez on 06/13 @ 10:45 AM Total Time Total Time Spent Total Time Spent (In Minutes): 35 minutes Total Time Includes: Examination of the Patient, Discharge Planning, Medication Reconciliation, Communication With Other Providers and Other Discharge Plan Discharge Items Patient Disposition: Home - Self-Care Reason For Visit: RT SIDED MULTIPLE RIB FRACTURE/INTRACTABLE PAIN Discharge Diagnosis: Multiple rib fractures involving four or more ribs/ Fall due to ice or snow/ Lung infiltrate: Condition: Good Discharge Goals: Decrease discomfort, Improve disease control, Improve function and Increase independence Activity: Resume your previous activity Activity Comment: as tolerated Non-emergency contact: Primary Care Provider Call non-emergency contact if: you have any medication questions, your symptoms worsen and your temperature is above 101.5 Diet: Heart Healthy Addtl Provider Instructions: Follow up with your primary care provider Dr. Nunez on 06/13 @ 10:45 AM Continue using incentive spirometry at least every hour Complete course of antibiotic with augmentin Please hold next dose of Nucynta if you develop any lethargy and drowsiness Please do not drive or operate any machine after taking nucynta Fall precaution Prescriptions: New tapentadol [Nucynta] 50 mg Tablet 50 mg PO Q12H PRN (Reason: pain) Qty: 10 RF: 0 amoxicillin-pot clavulanate [Augmentin] 875-125 mg tablet 1 tab PO Q12H Qty: 8 RF: 0 Continue bupropion HCl 150 mg tablet sustained-release 12 hr 150 mg PO BID RF: 0 trazodone 50 mg tablet 50 mg PO HS RF: 0 metoprolol succinate 50 mg tablet extended release 24 hr 50 mg PO QAM RF: 0 metoprolol succinate 50 mg tablet extended release 24 hr 25 mg PO QPM RF: 0 aspirin 81 mg Tablet,Chewable 162 mg PO QPM RF: 0 montelukast 10 mg Tablet 10 mg PO PM RF: 0 levothyroxine 200 mcg Tablet 200 mcg PO DAILY RF: 0 hydrochlorothiazide 25 mg tablet 37.5 mg PO DAILY RF: 0 hydroxychloroquine 200 mg tablet 400 mg PO HS RF: 0 fluticasone [Flonase Allergy Relief] 50 mcg/actuation [place]kel[place],Suspension 2 spray INTRANASAL DAILY RF: 0 esomeprazole magnesium 20 mg capsule,delayed release(DR/EC) 20 mg PO DAILY RF: 0 eplerenone 50 mg tablet 50 mg PO DAILY RF: 0 duloxetine 20 mg capsule,delayed release(DR/EC) 20 mg PO DAILY RF: 0 levocetirizine 5 mg Tablet 5 mg PO HS RF: 0 testosterone 20.25 mg/1.25 gram (1.62 %) gel in metered-dose pump 2 dose topical 4XWK RF: 0 testosterone 20.25 mg/1.25 gram (1.62 %) gel in metered-dose pump 3 dose topical 3XWK RF: 0 albuterol sulfate [ProAir RespiClick] 90 mcg/actuation Aerosol Powdr Breath Activated 2 puff INHALATION Q6H PRN (Reason: Shortness Of Breath) RF: 0 lidocaine [Lidoderm] 5 % adhesive patch,medicated 1 patch TOP DAILY Qty: 30 RF: 0 ondansetron 4 mg tablet,disintegrating 4 mg PO Q4H PRN (Reason: nausea and vomiting) Qty: 30 RF: 0 Discontinued oxycodone 5 mg tablet 5 mg PO Q4H PRN (Reason: pain) Qty: 18 RF: 0 [facility]Alone [place]: [facility] [place] Discharge Orders: Discharge Order (Routine); Ordered 06/08/18 Ordered By: Michelle Urias Admission Data Admit Date/Time: 06/05/18 09:34 Attending Provider: Michelle Urias Admit Provider: Sirena Vo Primary Care Provider: Brenda Nunez Other Providers: Snaju Villar ; Sirena Vo Service: Medical Other Interventions: Discharge Summary Assessment (RN) Last Done: 06/08/18 14:54 DC Date/Time DO NOT enter until pt leaves facility: 06/08/18 17:01
== END 2018-06-08 17:01 | disposition home or self-care (01) ==
LOC: ED 06:43 → 3W 06:43 → SUATTDRO 09:34 → 3W 10:14